=== PATIENT | female | born 1985 | race Caucasian/White ===

== ENCOUNTER → 2018-07-15 | Outpatient (CLI) | payer MEDICAID ==
--- NOTE | 2018-07-15 12:39 | CT ---
EXAMINATION TYPE: CT sinus wo con DATE OF EXAM: 07/15/2018 COMPARISON: None HISTORY: Acute sinusitis CT DLP: 654.40 mGycm. Automated Exposure Control for Dose Reduction was Utilized. TECHNIQUE: CT scan of the sinuses is performed without contrast, axial images are obtained, coronal r eformatted images are also reviewed. FINDINGS: The paranasal sinuses including the frontal, ethmoid, sphenoid, and maxillary sinuses bila terally are well-aerated without abnormal opacification. The ostiomeatal complex is patent bilateral ly on the coronal images. Lu bullosa present bilaterally. There is a deviated nasal septum toward the left. Visualized portion of mastoid air cells show no abnormal opacification. The globes are intact bilate rally. IMPRESSION: The sinuses are clear and the ostiomeatal complex is patent bilaterally. Additional find ings above.
== END | disposition home or self-care (01) ==
LOC: RADCTMAIN 11:14
PROVIDERS: ATTEND Otolaryngology
DX: J34.2 Deviated nasal septum (principal)
CPT/HCPCS: 70486

== ENCOUNTER → 2023-02-04 | Outpatient (CLI) | payer MEDICAID ==
--- NOTE | 2023-02-05 08:49 | MM ---
Reason for Exam: Screening (asymptomatic). Baseline mammogram. Patient History: Menarche at age 10. First Full-Term at age 26. Premenopausal. Risk Values: Flaquita 5 year model risk: 0.6%. NCI Lifetime model risk: 11.1%. Prior Study Comparison: Patient's first Mammogram. Tissue Density: The breast tissue is extremely dense which could obscure a lesion on mammography. Findings: Analyzed By CAD. There is no suspicious group of microcalcifications within either breast. No architectural distortion. No suspicious mass within the left breast. There are 2 oval well- circumscribed masses within the lower inner left breast at anterior to middle depth measuring 3.8 and 1.5 cm. Overall Assessment: Incomplete: need additional imaging evaluation, BI-RAD 0 Management: Diagnostic Breast Ultrasound of the right breast. A clinical breast exam by your physician is recommended on an annual basis and results should be correlated with mammographic findings. [facility] will attempt to contact patient to return for supplemental views and ultrasound if indicated. Note on Flaquita scores and lifetime risk: 1. A Flaquita score greater than 3% is considered moderate risk. If this is the case, consider specialist referral to assess eligibility for a risk reducing agent. If overall lifetime risk for the development of breast cancer is 20% or higher, the patient may qualify for future screening with alternating mammogram and breast MRI. Electronically signed and approved by: Hal Ocasio
== END | disposition home or self-care (01) ==
LOC: RADMAMWWP 10:36
PROVIDERS: ATTEND Obstetrics & Gynecology
DX: Z12.31 Encounter for screening mammogram for malignant neoplasm of breast (principal)
CPT/HCPCS: 77063; 77067

== ENCOUNTER → 2023-02-06 | Outpatient (CLI) | payer MEDICAID ==
--- NOTE | 2023-02-06 09:48 | USB ---
Reason for Exam: Additional evaluation requested from abnormal screening. Patient History: Menarche at age 10. First Full-Term at age 26. Premenopausal. Risk Values: Flaquita 5 year model risk: 0.6%. NCI Lifetime model risk: 11.1%. Technique: Method: Targeted. Prior Study Comparison: 02/04/2023 Bilateral MG 3D screening mammo w/cad, [facility]. Findings: The lower inner quadrant of the right breast, the axilla of the right breast and the retroareolar of the right breast were scanned. Targeted ultrasound of the right breast at 3-6 o'clock with additional evaluation of the nipple and axilla was performed. There is a thin-walled anechoic cyst within the right breast at 3:00 2 to 4 cm from the nipple. This measures 2.4 x 1.6 x 3.5 cm. Additional thin-walled anechoic cyst within the right breast at 3:00 2 to 4 cm from the nipple measuring 1.6 x 0.8 x 1.5 cm. No internal color flow within the cyst. These are benign. Overall Assessment: Benign, BI-RAD 2 Management: Screening Mammogram of both breasts in 1 year. These cysts are amenable to ultrasound-guided aspiration as clinically indicated. A clinical breast exam by your physician is recommended on an annual basis and results should be correlated with mammographic findings. This exam should not preclude additional follow-up of suspicious palpable abnormalities. Results were given to the patient verbally at the time of exam. Electronically signed and approved by: Shine Gilmore D.O.
== END | disposition home or self-care (01) ==
LOC: RADUSWWP 09:00
PROVIDERS: ATTEND Obstetrics & Gynecology
DX: R92.8 Other abnormal and inconclusive findings on diagnostic imaging of breast (principal); N60.01 Solitary cyst of right breast

== ENCOUNTER → 2024-09-16 | Outpatient (CLI) | payer MEDICAID ==
--- NOTE | 2024-09-16 08:46 | MM ---
Reason for Exam: Clinical finding. Last mammogram was performed 1 year(s) and 8 month(s) ago. Indicated Problems: Lump or thickening of the right side for 2 Day(s). Patient History: Menarche at age 10. First Full-Term at age 26. Premenopausal. Patient has history of breast feeding. Maternal aunt (great) had breast cancer at or over age 50. Last menstrual period: 08/31/2024 Risk Values: Flaquita 5 year model risk: 0.7%. NCI Lifetime model risk: 11.0%. Prior Study Comparison: 02/04/2023 Bilateral MG 3D screening mammo w/cad, [facility]. Tissue Density: The breasts are heterogeneously dense, which may obscure small masses. Findings: Analyzed By CAD. Only the right breast was ordered. The left breast was also imaged as the patient is overdue for her annual exam. Multiple underlying circumscribed masses are redemonstrated though with fluctuation compared to 2022. There is a 2.6 cm isodense to low density circumscribed mass in the upper outer quadrant left breast middle to posterior depth not seen previously. There is a 2.0 cm oval circumscribed mass upper outer quadrant right breast middle depth which may also be new. Medial palpable abnormality in the right breast corresponds to a 3.6 cm circumscribed mass. This appears to have been present previously measuring 4.1 cm. Other underlying nodularity also present on the right. No suspicious microcalcification or other discrete abnormality is seen. Overall Assessment: Incomplete: need additional imaging evaluation, BI-RAD 0 Management: Diagnostic Breast Ultrasound of both breasts. [facility], , 09/16/2024 8:43 AM. Electronically signed and approved by: Celestina Dewey M.D. Radiologist
--- NOTE | 2024-09-16 10:29 | USB ---
Reason for Exam: Clinical finding. Patient History: Menarche at age 10. First Full-Term at age 26. Premenopausal. Patient has history of breast feeding. Maternal aunt (great) had breast cancer at or over age 50. Risk Values: Flaquita 5 year model risk: 0.7%. NCI Lifetime model risk: 11.0%. Technique: Method: Targeted. Prior Study Comparison: 02/04/2023 Bilateral MG 3D screening mammo w/cad, [facility]. Findings: The whole breast of the right breast, the upper outer quadrant of the left breast, the axilla of both breasts and the retroareolar of both breasts were scanned. A complete US of all four quadrants of the right breast , axilla, and retro-areolar region were reviewed. At the 1:00 palpable site, 4 cm from the nipple, there is a large 3.5 cm cyst with some minimal internal debris. At 2:00, 6 cm from the nipple, there is ar 1.4 cm benign cyst. At 9:00, 4 cm from the nipple, there is a 1.8 cm benign cyst, mammographic correlate. An adjacent 1.6 cm cyst is also present. Scattered dense tissues throughout. Some other smaller scattered cysts are also noted. No suspicious solid lesion or axillary adenopathy. Targeted ultrasound left breast 12:00 to 3:00 upper outer quadrant including scanning in the subareolar region and axilla. At the 12:00 position, 4 cm from the nipple, there is a string of benign cysts and a 2.8 x 1.1 x 3.6 cm. At the 1:00 position, 4 cm from the nipple, mammographic correlate, there is a 2.2 x 2.1 x 1.3 cm benign cyst. No other solid or cystic lesion or axillary adenopathy. Overall Assessment: Probably benign, BI-RAD 3 Management: Diagnostic Mammogram of both breasts in 6 months. For the fluctuating mammographic nodularity. If any of these cysts become symptomatic, percutaneous aspiration can be considered. A clinical breast exam by your physician is recommended on an annual basis and results should be correlated with mammographic findings. This exam should not preclude additional follow-up of suspicious palpable abnormalities. Results were given to the patient verbally at the time of exam. [facility], , 09/16/2024 10:26 AM. Electronically signed and approved by: Celestina Dewey M.D. Radiologist
== END | disposition home or self-care (01) ==
LOC: RADMAMWWP 08:04
PROVIDERS: ATTEND Family Medicine
DX: N63.10 Unspecified lump in the right breast, unspecified quadrant (principal); N63.20 Unspecified lump in the left breast, unspecified quadrant; R92.333 Mammographic heterogeneous density, bilateral breasts; Z80.3 Family history of malignant neoplasm of breast
CPT/HCPCS: 77062; 77066